=== PATIENT | female | born 1995 | race Caucasian/White ===

== ENCOUNTER → 2022-03-25 14:34 | Outpatient (BNVA) | payer SELFPAY | PROVIDERS: Visit Provider Family Medicine | DX: F32.1 Major depressive disorder, single episode, moderate (principal); E55.9 Vitamin D deficiency, unspecified; E04.9 Nontoxic goiter, unspecified; F41.9 Anxiety disorder, unspecified | CPT/HCPCS: 80053; 82306; 84439; 84443; 85025 ==

== ENCOUNTER → 2022-06-24 15:56 | Outpatient (BNVA) | payer SELFPAY | PROVIDERS: PCP Family Medicine; Visit Provider Family Medicine | DX: E55.9 Vitamin D deficiency, unspecified (principal); F41.9 Anxiety disorder, unspecified; F32.1 Major depressive disorder, single episode, moderate; Z78.9 Other specified health status; F41.1 Generalized anxiety disorder; F90.0 Attention-deficit hyperactivity disorder, predominantly inattentive type | CPT/HCPCS: 82306; 82607; 86705; 86706; 87340 ==

== ENCOUNTER → 2022-12-01 11:22 | Outpatient (BNVA) | payer OTHER, SELFPAY | PROVIDERS: PCP Family Medicine; Visit Provider Obstetrics & Gynecology | DX: R87.629 Unspecified abnormal cytological findings in specimens from vagina (principal); E04.9 Nontoxic goiter, unspecified | CPT/HCPCS: 83520; 84146; 84443; 85025 ==

== ENCOUNTER → 2022-12-15 08:49 | Outpatient (BNVA) | payer OTHER, SELFPAY | PROVIDERS: PCP Family Medicine; Visit Provider Obstetrics & Gynecology | DX: N92.6 Irregular menstruation, unspecified (principal) | CPT/HCPCS: 81025 ==

== ENCOUNTER → 2023-01-06 11:23 | Outpatient (BNVA) | payer OTHER, SELFPAY | PROVIDERS: PCP Family Medicine; Visit Provider Obstetrics & Gynecology | DX: Z36.87 Encounter for antenatal screening for uncertain dates (principal) | CPT/HCPCS: 76801; 84315 ==

== ENCOUNTER → 2023-01-12 10:11 | Outpatient (BNVA) | payer OTHER, SELFPAY | PROVIDERS: PCP Family Medicine; Visit Provider Nurse Practitioner Women's Health | DX: O09.90 Supervision of high risk pregnancy, unspecified, unspecified trimester (principal); O26.899 Other specified pregnancy related conditions, unspecified trimester; R19.00 Intra-abdominal and pelvic swelling, mass and lump, unspecified site | CPT/HCPCS: 80307; 84315; 85027; 86304; 86592; 86762; 86803; 86850; 86900; 87340; 87624; 87806 ==

== ENCOUNTER → 2023-01-28 08:20 | Outpatient (BNVA) | payer OTHER, SELFPAY | PROVIDERS: PCP Family Medicine; Visit Provider Nurse Practitioner Women's Health | DX: O09.90 Supervision of high risk pregnancy, unspecified, unspecified trimester (principal); Z3A.12 12 weeks gestation of pregnancy; O30.001 Twin pregnancy, unspecified number of placenta and unspecified number of amniotic sacs, first trimester | CPT/HCPCS: 76801; 76802; 84315; 87086 ==

== ENCOUNTER 2023-02-08 00:07 | Emergency (ER) | payer OTHER, BC, MEDICAID, SELFPAY ==
[2023-02-08 00:12] VITALS: BP 113/79; PULSE 98; RESP 18; TEMP 36.8; O2SAT 97; BMI 27.6
[2023-02-08 01:13] LABS: Basophils % 0.2 %; Eosinophils % 0.1 %; Hematocrit 40.1 % (36-47); Lymphocytes # 0.7 10^3/uL (0.8-4.8); Lymphocytes % 8.2 %; Mean Corpuscular HGB Conc 34.2 g/dL (30-55); Mean Corpuscular Hemoglobin 34.1 pg (27-33); Mean Corpuscular Volume 99.8 fl (85-98); Mean Platelet Volume 8.4 fL (7.4-10.4); Monocytes # 0.3 10^3/uL (0.2-0.9); Monocytes % 3.3 %; Neutrophils # 7.89 10^3/uL (1.8-7.7); Neutrophils % 87.6 %; Nucleated Red Blood Cells % 0 %; Platelet Count 192 10^3/cmm (157-399); Red Blood Count 4.02 10^6/uL (3.85-5.65); Red Cell Distribution Width 13.9 % (12.1-15.1); White Blood Count 9.01 10^3/uL (3.29-11.43)
[2023-02-08] MEDS: metoclopramide 5 mg/mL SDV 2 mL 10 MG IVP (01:41)
[2023-02-08] MEDS: sodium chloride 0.9% 1,000 ML 999 ML IV ×2 (01:41→02:42)
[2023-02-08 01:45] VITALS: BP 113/73; PULSE 64; O2SAT 100
[2023-02-08 01:48] LABS: Alanine Aminotransferase 10 U/L (0-33); Albumin Level 4.1 g/dL (3.5-5.2); Alkaline Phosphatase 53 U/L (35-105); Aspartate Amino Transferase 12 U/L (0-32); Blood Urea Nitrogen 9 mg/dL (6-20); C Reactive Protein 26.2 mg/L (0.0-4.9); Calcium 9.2 mg/dL (8.5-10.5); Carbon Dioxide 23 mmol/L (22-29); Chloride 101 mmol/L (98-107); Globulin 3.1 g/dL (1.3-4.6); Glomerular Filtration Rate 145.9 mL/min (90-130); Glucose 85 mg/dL (65-115); Lipase 22 U/L (13-60); Osmolality Calculated 284 mOsm/kg (285-295); Sodium 138 mmol/L (136-145); Total Protein 7.2 g/dL (6.6-8.7)
[2023-02-08 02:09] LABS: Add Urine Culture? No; Add Urine Microscopic? YES; Bacteria Urine 1+ /hpf; Bilirubin Urine 1+ (Negative); Blood Urine Neg (Negative); Glucose Urine UA Norm (Normal); Ketones Urine 3+ (Negative); Leukocyte Esterase Urine Trace (Negative); Mucus Urine 2+ /hpf; Nitrate Urine Negative (Negative); Protein Urine Trace (Negative); Squamous Epithelial Cell Urine 25-40 /hpf (0-5); Urine Appearance Hazy (CLEAR); Urine Color Amber (Yellow); Urobilinogen Urine Neg (Negative); WBC Urine 0-4 /hpf (0-5); pH Urine 5 (5-7)
--- NOTE | 2023-02-08 02:33 | USR_ITS ---
PROCEDURE INFORMATION: Exam: US , Limited Exam date and time: 02/08/2023 2:49 AM Age: 27 years old Clinical indication: Lmp or gestational age (in weeks): 13 weeks; Other: Vomiting; ; Additional info: Cramping, 13w preg TECHNIQUE: Imaging protocol: Real-time ultrasound of the maternal uterus with image documentation. Exam focused on the clinical indication. COMPARISON: US OB <= 14 wk fetus twins 01/28/2023 8:23 AM FINDINGS: Gestation: The baby a fetus crown-rump length measures 6.6 cm with estimated gestational age of 12 weeks and 6 days. The Baby B fetus crown-rump length measures 6.4 cm, consistent with estimated gestational age of 12 weeks and 6 days. There is a Twin viable intrauterine , which has previously been reported to be monochorionic biamniotic. heart rate is 147 bpm in baby A and 144 bpm in baby B. baby a is on the left side and baby B is on the right side. Both babies are active. Placenta: Placenta is fundal. There is no evidence of placenta previa. MATERNAL: Cervix: The cervix measures 4.6 cm in length. Intraperitoneal space: Three cystic structures are again seen in the pelvis, extending into the abdomen. The largest cystic structure measures 19.4 cm. The 2nd cystic structure may measures 10.8 cm. The 3rd cystic structure measures 4.4 cm. US/US OB limited twins [id number] IMPRESSION: 1. Viable intrauterine twin with estimated gestational age of 12 weeks and 6 days. 2. Three cystic structures are again seen in the pelvis, extending into the abdomen. The largest cystic structure measures 19.4 cm. The 2nd cystic structure may measures 10.8 cm. The 3rd cystic structure measures 4.4 cm.
--- NOTE | 2023-02-08 02:59 | ED_ITS ---
HPI - Nausea/Vomiting/Diarrhea General: Chief complaint: Nausea/Vomiting/Diarrhea Stated complaint: vomiting, 13 weeks Time Seen by Provider: 02/08/23 00:53 History of Present Illness: 27-year-old female at 13 weeks gestation with twins. She states that she had gotten over her morning sickness mostly a couple weeks ago. The last day though, she has vomited multiple times. She feels quite dry and dehydrated. No diarrhea. She has felt feverish. She is having some cramping pain in her pelvis bilaterally, on the right greater than the left. No blood in the vomit or stool. She has had sick contacts with others with gastroenteritis including her niece. Associated nausea: Yes Associated symtoms: Reports nausea; Denies chest pain Review of Systems Const: Denies: fever(s) or chills ENMT: Denies: throat pain Card: Denies: chest pain Resp: Denies: dyspnea, productive cough or non-productive cough GI: Reports: abdominal pain, nausea and vomiting; Denies: diarrhea PFSH ED PFSH: Medical History Anxiety Attention deficit disorder Moderate major depression No pertinent past medical history neghx: htn,dm,thyroid,dvt/pe PCP: Dr. Vanessa with [facility] Vitamin D deficiency Surgical History H/O breast biopsy (~2013) left; returned normal History of elbow surgery left Family History Other Diabetes Hyperlipidemia Hypertension Denies family history of CAD (coronary artery disease) Clotting disorder Dementia Psychiatric illness Chronic kidney disease (CKD) Anesthesia complication Bleeding disorder Lung disease Cancer Stroke Physical Exam Const: COMMON NORMALS: no acute distress GENERAL APPEARANCE: cooperative; not ill appearing and not frail appearing HENMT: COMMON NORMALS: normocephalic, atraumatic and Normal external nose present HEAD & SCALP: normocephalic and atraumatic FACE & SINUS: normal facial exam and face symmetric NOSE: Normal external nose present Eye: COMMON NORMALS: Equal, round and reactive pupils present and EOMs intact bilaterally PUPIL: Yes Equal, round and reactive pupils present Neck/C-Spine: GENERAL: Yes trachea midline Chest: CHEST: Yes Symmetrical chest wall rise Resp: COMMON NORMALS: normal respiratory effort, No retractions, No use of accessory muscles and clear to auscultation bilaterally AUSCULTATION: clear to auscultation bilaterally Cardio: COMMON NORMALS: regular rate and regular rhythm RATE: regular rate RHYTHM: regular rhythm GI: COMMON NORMALS: Normal to inspection, nondistended, normoactive bowel sounds present and Soft to palpation PALPATION: Yes Soft to palpation and Yes Tenderness to palpation present (GI) Details: LLQ and RLQ Extremity: COMMON NORMALS: no pedal edema Neuro: RAJESH COMA SCALE: document GCS findings [place] coma scale eye opening: Spontaneous Rajesh coma scale verbal response: Orientated [place] coma scale motor response: Obey commands [place] coma scale total score: 15 SENS ORY EXAM: Yes extremities (intact) Psych: COMMON NORMALS: speech normal SPEECH: Yes normal speech Skin: COMMON NORMALS: no rashes or lesions noted GENERAL SKIN EXAM: no rashes or lesions noted Course Vital Signs: Vital signs: Vital Signs Temperature 98.3 F 02/08/23 00:12 Pulse Rate 74 02/08/23 03:29 Respiratory Rate 18 02/08/23 03:29 Blood Pressure 113/73 02/08/23 03:29 Pulse Oximetry 100 02/08/23 03:29 Oxygen Delivery Me thod Room Air 02/08/23 00:12 MDM - Nausea/Vomiting/Diarrhea Medical Decision Making Urinalysis is equivocal for infection, but shows 3+ ketones indicating dehydration.. CRP is mildly elevated. Other laboratory is not remarkable. She has had 1 L. She is going to get another of IV fluid. Pelvic ultrasound is pending. Ultrasound shows 2 viable pregnancies, measuring 12 weeks 6 days which is appropriate. There are 3 large cystic structures in the patient's pelvis are stable from prior. She is feeling improved. She will be allowed discharge. Lab Data 02/08/23 01:07 02/08/23 01:07 Laboratory Results WBC 9.01 10^3/uL (3.29-11.43) 02/08/23 01:07 RBC 4.02 10^6/uL (3.85-5.65) 02/08/23 01:07 Hgb 13.70 g/dL (11.27-16.99) 02/08/23 01:07 Hct 40.1 % (36-47) 02/08/23 01:07 MCV 99.8 fl (85-98) H 02/08/23 01:07 MCH 34.1 pg (27-33) H 02/08/23 01:07 MCHC 34.2 g/dL (30-55) 02/08/23 01:07 RDW 13.9 % (12.1-15.1) 02/08/23 01:07 Plt Count 192 10^3/cmm (157-399) 02/08/23 01:07 MPV 8.4 fL (7.4-10.4) 02/08/23 01:07 Neut % (Auto) 87.6 % 02/08/23 01:07 Lymph % (Auto) 8.2 % 02/08/23 01:07 Mcintosh % (Auto) 3.3 % 02/08/23 01:07 Eos % (Auto) 0.1 % 02/08/23 01:07 Baso % (Auto) 0.2 % 02/08/23 01:07 Neut # (Auto) 7.89 10^3/uL (1.8-7.7) H 02/08/23 01:07 Lymph # (Auto) 0.7 10^3/uL (0.8-4.8) L 02/08/23 01:07 Mcintosh # (Auto) 0.3 10^3/uL (0.2-0.9) 02/08/23 01:07 Eos # (Auto) 0.0 10^3/uL (0.0-0.8) 02/08/23 01:07 Baso # (Auto) 0.0 10^3/uL (0.0-0.1) 02/08/23 01:07 Nucleated RBC % (auto) 0 % 02/08/23 01:07 Nucleated RBCs # 0.0 /100WBC 02/08/23 01:07 Sodium 138 mmol/L (136-145) 02/08/23 01:07 Potassium 4.0 mmol/L (3.5-5.1) 02/08/23 01:07 Chloride 101 mmol/L (98-107) 02/08/23 01:07 Carbon Dioxide 23 mmol/L (22-29) 02/08/23 01:07 Anion Gap 18.0 (5-19) 02/08/23 01:07 BUN 9 mg/dL (6-20) 02/08/23 01:07 Creatinine 0.5 mg/dL (0.5-0.9) 02/08/23 01:07 GFR Calculation 145.9 mL/min (90-130) H 02/08/23 01:07 Glucose 85 mg/dL (65-115) 02/08/23 01:07 Calculated Osmolality 284 mOsm/kg (285-295) L 02/08/23 01:07 Calcium 9.2 mg/dL (8.5-10.5) 02/08/23 01:07 Total Bilirubin 1.0 mg/dL (0.15-1.2) 02/08/23 01:07 AST 12 U/L (0-32) 02/08/23 01:07 ALT 10 U/L (0-33) 02/08/23 01:07 Alkaline Phosphatase 53 U/L (35-105) 02/08/23 01:07 C-Reactive Protein 26.2 mg/L (0.0-4.9) H 02/08/23 01:07 Total Protein 7.2 g/dL (6.6-8.7) 02/08/23 01:07 Albumin 4.1 g/dL (3.5-5.2) 02/08/23 01:07 Globulin 3.1 g/dL (1.3-4.6) 02/08/23 01:07 Lipase 22 U/L (13-60) 02/08/23 01:07 Ser , Semi-Qnt 94206.00 mIU/mL 02/08/23 01:07 Urine Color Kristy (Yellow) 02/08/23 01:48 Urine Appearance Hazy (CLEAR) A 02/08/23 01:48 Urine pH 5 (5-7) 02/08/23 01:48 Ur Specific [place] 1.020 (1.005-1.030) 02/08/23 01:48 Urine Protein Trace (Negative) 02/08/23 01:48 Urine Glucose (UA) Norm (Normal) 02/08/23 01:48 Urine Ketones 3+ (Negative) H 02/08/23 01:48 Urine Blood Neg (Negative) 02/08/23 01:48 Urine Nitrate Negative (Negative) 02/08/23 01:48 Urine Bilirubin 1+ (Negative) H 02/08/23 01:48 Urine Urobilinogen Neg mg/dL (Negative) 02/08/23 01:48 Ur Leukocyte Esterase Trace (Negative) H 02/08/23 01:48 Urine RBC None /hpf (0-2) 02/08/23 01:48 Urine WBC 0-4 /hpf (0-5) H 02/08/23 01:48 Ur Squamous Epith Cells 25-40 /hpf (0-5) H 02/08/23 01:48 Amorphous Sediment Not Reportable 02/08/23 01:48 Urine Bacteria 1+ /hpf (NONE) H 02/08/23 01:48 Urine Mucus 2+ /hpf 02/08/23 01:48 XR interpretation done by ED provider, pending radiology final review Discharge Plan Discharge Patient Disposition: Home Clinical Impression: Gastroenteritis, Twin Clinical Impression: (Ruled Out): Attention deficit disorder Condition: Stable Prescriptions: Continued ondansetron HCl 4 mg tablet 4 mg PO Q6H PRN (Reason: nausea and vomiting) Qty: 30 2RF No Action acetaminophen [Tylenol Extra Strength] 500 mg tablet 500 mg PO Q6H PRN Gummies 400 mcg-35 mg- 25 mg-5 mg tablet,chewable 1 tab PO DAILY folic acid 1 mg tablet 1 mg PO DAILY Qty: 60 11RF ferrous sulfate 325 mg (65 mg iron) tablet 325 mg PO BID Qty: 60 11RF promethazine 25 mg tablet 25 mg PO Q6H PRN (Reason: nausea and vomiting) Qty: 45 1RF metoclopramide HCl [Reglan] 10 mg tablet 10 mg PO Q6H PRN (Reason: nausea and vomiting) Qty: 120 0RF Discharge Orders: Discharge ED (Routine); Ordered 02/08/23 Ordered By: Ritesh Baumann Referrals: Christiano Hernandez MD [Primary Care Provider] - 1-3 days Discharge Diet: Advance as tolerated and Clear Liquid Discharge Activity: Increase activity as tolerated Patient Instructions: Opioid Safety, Pain Management Activity Restrictions/Additional Instructions: Return for worsening pain, fever greater than 100, vomiting liquids or medications despite treatment, other concerning symptoms. Take the ondansetron every 4 hours while awake scheduled for the first 24 hours, then as needed. Coding Level of Care Code ED [employer] for Jake Bravo
[2023-02-08 03:29] VITALS: BP 113/73; PULSE 74; RESP 18; O2SAT 100
== END 2023-02-08 03:35 | disposition home or self-care (01) ==
PROVIDERS: Emergency Provider Emergency Medicine; PCP Obstetrics & Gynecology
DX: O99.611 Diseases of the digestive system complicating pregnancy, first trimester (principal); K52.9 Noninfective gastroenteritis and colitis, unspecified; O30.031 Twin pregnancy, monochorionic/diamniotic, first trimester; Z3A.13 13 weeks gestation of pregnancy
CPT/HCPCS: 36415; 76815; 80053; 81001; 83690; 84702; 85025; 86140; 96361; 96374; 99284; J2765; J7030

== ENCOUNTER → 2023-05-05 10:55 | Outpatient (BNVA) | payer BC, MEDICAID, SELFPAY | PROVIDERS: PCP Obstetrics & Gynecology; Visit Provider Obstetrics & Gynecology | DX: R10.2 Pelvic and perineal pain (principal); R19.09 Other intra-abdominal and pelvic swelling, mass and lump | CPT/HCPCS: 76830 ==

== ENCOUNTER → 2024-12-07 14:45 | Outpatient (BNVA) | payer BC, SELFPAY | PROVIDERS: PCP Obstetrics & Gynecology; Visit Provider Emergency Medicine | DX: R39.9 Unspecified symptoms and signs involving the genitourinary system (principal); N30.01 Acute cystitis with hematuria | CPT/HCPCS: 81000; 87077; 87086; 87184 ==